=== PATIENT | female | born 2000 | race Caucasian/White ===

== ENCOUNTER 2022-03-05 23:18 | Emergency (ER) | payer OTHER ==
[~2022-03-05] VITALS: Ht 157.5 cm; Wt 59.0 kg
[~2022-03-05 23:18] MED LIST: CEPHALEXIN500 MG PO; MOTRIN800 MG PO; NO CURRENT MEDS; PENICILLIN V P500 MG OR
[2022-03-05 23:25] VITALS: BP 120/71
[2022-03-05 23:30] VITALS: BP 119/72
[2022-03-05 23:45] VITALS: BP 118/78
[2022-03-06] VITALS: BP 115/64
[2022-03-06 00:12] LABS: IMMATURE GRANULOCYTES 0.2 % (0.0-5.0); MEAN CORPUSCULAR HGB 28.8 pG CALC (26.0-32.0); MEAN CORPUSCULAR HGB CONC 32.7 g/dL CAL (32.0-36.0); NEUT# 25.19 thou/uL (2.00-7.15); RED BLOOD COUNT 5.77 mill/uL (4.20-5.60); RED CELL DISTRI WIDTH 14.3 % (11.5-15.5)
[2022-03-06 00:15] VITALS: BP 107/65
[2022-03-06 00:25] LABS: HEMATOCRIT 50.8 % (37.0-47.0); HEMOGLOBIN 16.6 g/dl (12.0-16.0)
[2022-03-06 00:30] VITALS: BP 113/62
[2022-03-06 00:34] LABS: ACT PARTIAL THROMBO TIME 25.9 SECONDS (20.0-32.5); PROTHROMBIN TIME 10.4 SECONDS (9.0-12.5)
[2022-03-06 00:37] LABS: ALBUMIN 5.2 g/dL (3.2-5.0); ALKALINE PHOSPHATASE 115 u/l (38-126); BUN 10 mg/dL (7-17); BUN/CREATININE RATIO 14 (12-20 (CALC)); CHLORIDE 109 mmol/l (95-108); CREATININE 0.7 mg/dL (0.5-1.0); GFR FOR AFR.AMER. > 60 ML/MIN (>=60 (CALC)); GFR OTHER RACES > 60 ML/MIN (>=60 (CALC)); LIPASE 67 u/l (23-300); POTASSIUM 3.3 mmol/l (3.5-5.1); SGOT/AST 27 u/l (14-36); SODIUM 143 mmol/l (137-146); TOTAL PROTEIN 9.1 g/dL (6.3-8.2)
[2022-03-06 00:38] LABS: ANION GAP 18 (6-22 (CALC)); BILIRUBIN, TOTAL 0.7 mg/dL (0.0-1.4); CARBON DIOXIDE 19 mmol/l (22-30)
[2022-03-06] MEDS ORDERED: PROMETHAZINE HY25 M1 PO (01:34)
[2022-03-06 01:44] VITALS: BP 113/62
== END 2022-03-06 01:54 | disposition home or self-care (01) | DRG 313 ==
LOC: ED 23:18
PROVIDERS: Family Medicine
DX: R07.89 Other chest pain (principal); A08.4 Viral intestinal infection, unspecified
CPT/HCPCS: Q9967

== ENCOUNTER 2023-05-16 20:22 | Emergency (ER) | payer OTHER ==
[~2023-05-16] VITALS: Ht 157.5 cm; Wt 54.0 kg
[~2023-05-16 20:22] MED LIST changes: +PROMETHAZINE HY25 M1 PO
[2023-05-16] MEDS ORDERED: AMOX/K CLAV875 M1 PO (22:00)
[2023-05-16] MEDS ORDERED: TRAMADOL HCL50 MG PO (22:00)
[2023-05-16 22:15] VITALS: BP 129/78
[2023-05-17] MEDS ORDERED: TRAMADOL HCL50 MG PO (14:41)
== END 2023-05-16 22:15 | disposition home or self-care (01) | DRG 605 ==
LOC: ED 20:22
PROC: 0HQEXZZ Repair Left Lower Arm Skin, External Approach (ICD-10-PCS; principal; 2023-05-16)
DX: S51.852A Open bite of left forearm, initial encounter (principal); W54.0XXA Bitten by dog, initial encounter; Y92.009 Unspecified place in unspecified non-institutional (private) residence as the place of occurrence of the external cause